=== PATIENT | female | born 1990 | race Caucasian/White ===

== ENCOUNTER 2017-03-28 10:32 | Outpatient (CLI) | payer MEDICAID ==
[~2017-03-28] VITALS: Ht 170.2 cm; Wt 77.1 kg
[2017-03-28] MEDS ORDERED: PREN1TAB13 PO (10:48)
[2017-03-28 10:49] VITALS: BP 109/65; PULSE 94; RESP 18; Ht 170.2 cm; Wt 77.1 kg
--- NOTE | 2017-03-28 11:59 | RADRPT ---
PROCEDURE: US OB limited CLINICAL INDICATION: Contractions TECHNIQUE: Multiple sonographic images of the pelvis were obtained. The images were reviewed on a PACS workstation. COMPARISON: None FINDINGS: There is a single live intrauterine , in cephalic presentation. A normal heart rate i s identified measuring 136 beats per minute. The amniotic fluid index is within normal limits measur ing 11.3 cm. The placenta is grade II, located anteriorly. IMPRESSION: 1. Single live intrauterine in cephalic presentation with normal heart rate of 136 b pm. 2. Normal amniotic fluid index of 11.3 cm. Physician Dasha Date Time Electronically viewed and signed by Physician Dasha on 03/28/2017 11:59 ALYCE/
[2017-03-28 13:29] LABS: ADD UMIC NO; UR ASCORBIC ACID NEGATIVE (NEGATIVE); UR BILIRUBIN (Dip) NEGATIVE (NEGATIVE); UR BLOOD (Dip) NEGATIVE (NEGATIVE); UR CLARITY CLEAR (CLEAR); UR COLOR YELLOW (YELLOW); UR GLUCOSE (Dip) NEGATIVE (NEGATIVE); UR KETONES (Dip) NEGATIVE (NEGATIVE); UR LEUKOCYTE ESTERASE (Dip) NEGATIVE Leu/ul (NEGATIVE); UR NITRITE (Dip) NEGATIVE (NEGATIVE); UR SPECIFIC GRAVITY (Dip) 1.019 (1.003-1.030); UR TOTAL PROTEIN (Dip) NEGATIVE (NEGATIVE); UR UROBILINOGEN (Dip) NEGATIVE (NEGATIVE)
--- NOTE | 2017-03-28 14:00 | RADRPT ---
PROCEDURE: OB ultrasound for biophysical profile CLINICAL INDICATION: Smoking. TECHNIQUE: Multiple sonographic images of the pelvis were obtained. Transabdominal view of the gr avid uterus are available for review. The images were reviewed on a PACS workstation. COMPARISON: OB ultrasound from earlier the same date. FINDINGS: breathing movement = 2/2 tone = 2/2 motion = 2/2 Quantitative amniotic fluid volume = 2/2 ROYAL = 12.9 cm Single live intrauterine with cardiac activity at 156 beats per minute. There is a anterior placenta without previa or abruption. IMPRESSION: 1. Single living intrauterine gestation in cephalic position. 2. Biophysical profile = 8/8. 3. ROYAL = 12.9 cm. RPTAT: [facility] Physician Chhaya Date Time Electronically viewed and signed by Physician Chhaya on 03/28/2017 14:00 /
--- NOTE | 2017-03-28 14:15 | TRIAGE ---
OB Triage Datetime Report Generated by CPN: 03/28/2017 14:14 Datetime: 03/28/2017 14:00 Stage of : OB Triage Maternal Assessment Level of Consciousness: Fully Conscious Labor Evaluation Frequency: IRREGULAR Monitor Mode: External Duration (sec)2399: 40-80 Quality: Mild Resting Tone [place]: Relaxed Heart Rate FHR Baseline Rate: 125 Monitor Mode: External US Variability: Moderate 6-25 bpm Accelerations: 15X15 Decelerations: None Pain Assessment Pain Scale: 6 Pain Presence: Intermittent Pain Type: Cramping Pain Location: Abdomen Pain Goal: 3 Pain Relief Measures: Comfort Measures Membrane Status: Intact Vaginal Bleeding: None Datetime: 03/28/2017 13:56 Monitor Mode: External Monitor Mode: External US Comments: BPP COMPLETE Datetime: 03/28/2017 13:50 Monitor Mode: External US Comments: US MOVED BY US TECH-RECORDING MATERNAL PULSE Datetime: 03/28/2017 13:00 Stage of : OB Triage Maternal Assessment Level of Consciousness: Fully Conscious Labor Evaluation Frequency: 1-4 Monitor Mode: External Duration (sec)2399: 40-80 Quality: Mild Resting Tone [place]: Relaxed Heart Rate FHR Baseline Rate: 125 Monitor Mode: External US Variability: Moderate 6-25 bpm Accelerations: 15X15 Decelerations: None Pain Assessment Pain Scale: 6 Pain Presence: Intermittent Pain Type: Cramping Pain Location: Abdomen Pain Goal: 3 Pain Relief Measures: Comfort Measures Membrane Status: Intact Vaginal Bleeding: None Datetime: 03/28/2017 11:49 Stage of : OB Triage Maternal Assessment Level of Consciousness: Fully Conscious Labor Evaluation Frequency: 2UC/HR Monitor Mode: External Duration (sec)2399: 80-120 Quality: Mild Resting Tone [place]: Relaxed Heart Rate FHR Baseline Rate: 135 Monitor Mode: External US Variability: Moderate 6-25 bpm Accelerations: 15X15 Decelerations: None Category: Category I Pain Assessment Pain Scale: 6 Pain Presence: Intermittent Pain Type: Cramping Pain Location: Abdomen Pain Goal: 3 Pain Relief Measures: Comfort Measures Membrane Status: Intact Vaginal Bleeding: None Datetime: 03/28/2017 11:20 Vaginal Exam Dilatation (cms): 0.0 Station: -3 Exam By: [email or web address] Vaginal Bleeding: None Cervix, Consistency: Firm Cervix, Position: Posterior Datetime: 03/28/2017 10:45 Assessment Type: Triage Maternal Assessment Level of Consciousness: Fully Conscious DTR's/Clonus: DTRs 2+; No Clonus Headache: Denies Blurred Vision: No Respiratory Effort: Unlabored; Regular Rhythm; Equal Expansion Breath Sounds, Left: Clear and Equal Breath Sounds, Right: Clear and Equal Nausea/Vomiting: Denies RUQ Epigastric Pain: Denies Lower Extremities Edema: None Degree: None Upper Extremities Edema: None Degree: None Facial Edema: None Fall Risk Assessment History of Falling: (0) No Secondary Diagnosis: (0) No Ambulatory Aid: (0) Bedrest/Nurse Assist IV Therapy: (0) No Gait: (0) Normal/Bedrest/Immobile Mental Status: (0) Oriented to Own Ability Fall Score: 0 Fall Risk Score Definition: No Risk: No action required Datetime: 03/28/2017 10:43 Time of Arrival: 03/28/2017 10:27 EGA: 36.2 Arrived By: Ambulatory Arrived From: [facility] Office Chief Complaint: PT SENT FROM OB OFFICE TO R/O LABOR Movement: Present Contractions: Irregular Rupture of Membranes: Denies Vaginal Bleeding: None Vaginal Discharge: Denies Recent Sexual Intercouse: Denies Abdominal Trauma: Not Applicable Patient Complaints: Contractions; Cramping; Back Pain Time Provider Notified: 03/28/2017 10:35 Provider Notified: SAMANTHA Initial Plan: EFM/SVE/BPP/UA Datetime: 03/28/2017 10:42 Monitor Mode: External Monitor Mode: External US
--- NOTE | 2017-03-28 14:24 | PN ---
Triage Information Date/Time 03/28/2017 Reason for visit: Uterine contractions Weeks of Gestation 36 weeks and 2 days /Para Diabetes: none Hypertention: none Additional information 27 years old with IUP at 36 weeks and 2 days presented with complaint of contractions. Denies any LOF, vaginal bleeding or decreased movement, Has limited OB care,. started her care at 31 weeks. Smoker every days, . smokes about 1pp/ week. interested to quit smoking,. Denies any other complaint Objective Vital Signs Date Time Temp Pulse Resp B/P Pulse Ox O2 Delivery O2 Flow Rate FiO2 03/28/17 10:49 98.1 94 18 109/65 98 Room Air Heart Rate: 130's Contractions: 6-10 Minutes Apart Exam GA: A&O, NAD Abdomen: Soft, non tender, Fundal Height consistent with GA NST: moderate variability, + AC and occasional variables SVE: Closed/ Long. High Repeat exam after observation in triage, did not show any change Results/Medications Results 24 hrs Laboratory Tests Test 03/28/17 11:00 Urine Color YELLOW Urine Clarity CLEAR Urine pH 6.0 Urine Specific [place] 1.019 Urine Ketones NEGATIVE Urine Nitrite NEGATIVE Urine Bilirubin NEGATIVE Urine Urobilinogen NEGATIVE Urine Leukocyte Esterase NEGATIVE Urine Hemoglobin NEGATIVE Urine Glucose NEGATIVE Urine Total Protein NEGATIVE Imaging Results PROCEDURE: OB ultrasound for biophysical profile CLINICAL INDICATION: Smoking. TECHNIQUE: Multiple sonographic images of the pelvis were obtained. Transabdominal view of the gravid uterus are available for review. The images were reviewed on a PACS workstation. COMPARISON: OB ultrasound from earlier the same date. FINDINGS: breathing movement = 2/2 tone = 2/2 motion = 2/2 Quantitative amniotic fluid volume = 2/2 ROYAL = 12.9 cm Single live intrauterine with cardiac activity at 156 beats per minute. There is a anterior placenta without previa or abruption. IMPRESSION: 1. Single living intrauterine gestation in cephalic position. 2. Biophysical profile = 8/8. 3. ROYAL = 12.9 cm. RPTAT: [facility] Disposition: Discharge Assessment/Plan IUP at 36 weeks and 2 days Pterterm contractions False labor pain Limited PNC Smoker, every day Discussed about risks of smoking in . Encouraged to Quit. interested, Nicotine Patch prescription provided PTL precaution and kick counts and follow up with her OB in the next 24- 48 hours discussed Patient verbalized understanding All questions answered. DOROTEO SINGH MD Mar 28, 2017 14:24
== END 2017-03-28 14:21 | disposition home or self-care (01) ==
LOC: OBT 10:32 → L-D 10:32 → OBT 14:21
PROVIDERS: ATTEND Obstetrics & Gynecology
DX: O62.9 Abnormality of forces of labor, unspecified (principal); Z3A.32 32 weeks gestation of pregnancy; O47.03 False labor before 37 completed weeks of gestation, third trimester
CPT/HCPCS: 76815; 76818; 81003; Z7500; G0463

== ENCOUNTER 2017-04-10 21:21 | Outpatient (CLI) | payer MEDICAID ==
[~2017-04-10] VITALS: Ht 170.2 cm; Wt 78.4 kg
[~2017-04-10 21:21] MED LIST: PREN1TAB13 PO
[2017-04-10 21:36] VITALS: BP 109/72; PULSE 81; RESP 18; Ht 170.2 cm; Wt 78.4 kg
[2017-04-11] MEDS ORDERED: LACTATED RINGER'S 1,000 ML IV PRN (00:30)
[2017-04-11] MEDS ORDERED: OXYTOCIN 30 UNITS/LR 500 ML IV SCH ×2 (00:30)
[2017-04-11] MEDS ORDERED: IBUPROFEN 600 MG TAB PO PRN (00:30)
[2017-04-11] MEDS ORDERED: OXYTOCIN 30 UNITS/LR 500 ML IV PRN (00:30)
[2017-04-11] MEDS ORDERED: BUTORPHANOL 2 MG INJ IV PRN (00:30)
[2017-04-11] MEDS ORDERED: MISOPROSTOL 200 MCG TAB PR PRN (00:30)
[2017-04-11] MEDS ORDERED: CARBOPROST 250 MCG INJ IM PRN (00:30)
[2017-04-11] MEDS ORDERED: LIDOCAINE 1% (MPF) 30 ML INJ INJ PRN (00:30)
[2017-04-11] MEDS ORDERED: METHYLERGONOVINE 0.2 MG INJ IM PRN (00:30)
[2017-04-11] MEDS ORDERED: AMPICILLIN 2 GM/NS (PMX) 100 ML IV ONE (01:00)
[2017-04-11] MEDS: LACTATED RINGER'S 1,000 ML IV SCH ×2 (02:00→10:20)
--- NOTE | 2017-04-11 02:14 | TRIAGE ---
OB Triage Datetime Report Generated by CPN: 04/11/2017 02:14 Datetime: 04/10/2017 23:00 Labor Evaluation Frequency: 2-6 Monitor Mode: External Duration (sec)2399: 80-100 Quality: Mild Pattern: Normal: <= 5 Contractions in 10 Minutes Resting Tone [place]: Relaxed Heart Rate FHR Baseline Rate: 135 Monitor Mode: External US FHR Baseline Changes: No Baseline Change Variability: Moderate 6-25 bpm Accelerations: 15X15 Decelerations: None Category: Category I Datetime: 04/10/2017 22:07 Stage of : OB Triage Vaginal Exam Dilatation (cms): 1.0 Effacement (%): 50 Station: -3 Exam By: Raghav RIGGS RN Membrane Status: Intact Vaginal Bleeding: Scant (Annotations: DARK BROWN BLOOD NOTED WITH VAG EXAM/ NO BLOOD NOTED ON ABBY NEUM) Cervix, Consistency: Firm Cervix, Position: Posterior Presentation 'A': Cephalic Datetime: 04/10/2017 22:00 Labor Evaluation Frequency: IRRITABILITY NOTED/ IRREGULAR CONTRACTIONS Monitor Mode: External Duration (sec)2399: 90 Quality: Mild Pattern: Normal: <= 5 Contractions in 10 Minutes Resting Tone [place]: Relaxed Heart Rate FHR Baseline Rate: 125 Monitor Mode: External US FHR Baseline Changes: No Baseline Change Variability: Moderate 6-25 bpm Accelerations: 15X15 Decelerations: None Category: Category I Datetime: 04/10/2017 21:33 Stage of : OB Triage Time of Arrival: 04/10/2017 21:16 EGA: 38.1 Arrived By: Ambulatory Chief Complaint: R/O LABOR Movement: Present Contractions: Irregular Time Contractions Began: 04/10/2017 21:00 Rupture of Membranes: Unsure Vaginal Bleeding: Scant Recent Sexual Intercouse: Denies Abdominal Trauma: Not Applicable Patient Complaints: None (Annotations: Data stored by CPN on behalf of user) Additional Patient Complaints: DARK BROWN BLOOD NOTED WITH VAG EXAM Time Provider Notified: 04/10/2017 23:06 Provider Notified: DR EDWARDS Initial Plan: CALL KEIKO SCHWARTZ Maternal Assessment Level of Consciousness: Fully Conscious DTR's/Clonus: DTRs 2+; No Clonus Headache: Denies Blurred Vision: No Respiratory Effort: Unlabored; Regular Rhythm; Equal Expansion Breath Sounds, Left: Clear and Equal Breath Sounds, Right: Clear and Equal Nausea/Vomiting: Denies RUQ Epigastric Pain: Denies Lower Extremities Edema: None Degree: None Upper Extremities Edema: None Facial Edema: None Temperature Route: Oral Fall Risk Assessment History of Falling: (0) No Secondary Diagnosis: (0) No Ambulatory Aid: (0) Bedrest/Nurse Assist IV Therapy: (0) No Gait: (0) Normal/Bedrest/Immobile Mental Status: (0) Oriented to Own Ability Fall Score: 0 Fall Risk Score Definition: No Risk: No action required Monitor Mode: External Monitor Mode: External US Pain Assessment Pain Scale: 7 Pain Presence: Intermittent Pain Type: Contraction Pain Location: Abdomen; Back Datetime: 03/28/2017 10:45 Fall Score: 0 Fall Risk Score Definition: No Risk: No action required Datetime: 03/28/2017 10:43 EGA: 36.2
[2017-04-11] MEDS ORDERED: AL HYDROX/MG HYDROX/SIMETH 30 ML CUP PO ONE (02:30)
[2017-04-11 02:51] LABS: BASOPHILS % 0.2 % (0.0-2.0); EOSINOPHILS # 0.1 10^3/ul (0.0-0.5); HEMATOCRIT 31.3 % (37.0-47.0); HEMOGLOBIN 11.4 g/dl (12.0-16.0); LYMPHOCYTES # 2.1 10^3/ul (0.8-2.9); LYMPHOCYTES % 21.8 % (15.0-51.0); MEAN CORPUSCULAR HEMOGLOBIN 31.7 pg (29.0-33.0); MEAN CORPUSCULAR HGB CONC 36.4 g/dl (32.0-37.0); MEAN CORPUSCULAR VOLUME 86.9 fl (82.0-101.0); MEAN PLATELET VOLUME 12.9 fl (7.4-10.4); MONOCYTE # 0.7 10^3/ul (0.3-0.9); MONOCYTES % 7.4 % (0.0-11.0); NEUTROPHIL # 6.7 10^3/ul (1.6-7.5); NEUTROPHILS % 68.9 % (39.0-77.0); PLATELET COUNT 195 10^3/UL (140-415); RED CELL DISTRIBUTION WIDTH 12.3 % (11.5-14.5); WHITE BLOOD COUNT 9.8 10^3/ul (4.8-10.8)
[2017-04-11 03:17] LABS: BARBITURATES Negative (NEGATIVE); BENZODIAZEPINES Negative (NEGATIVE); CANNABINOIDS Negative (NEGATIVE); COCAINE Negative (NEGATIVE); OPIATES Negative (NEGATIVE)
[2017-04-11 03:19] LABS: INR 0.88; PROTIME 11.9 Sec (12.2-14.2); PT RATIO 0.9
[2017-04-11 03:20] LABS: PARTIAL THROMBOPLASTIN TIME 25.8 Sec (25.0-35.0)
--- NOTE | 2017-04-11 05:37 | HP ---
Date/Time of Note Date/Time of Note DATE: 04/11/17 TIME: 05:27 OB - History Hx of Present Free Text/Dictation 27y.o A0 at 38w1d with vaginal spotting with low abdominal pressure pain since last night 2100 VE 1/50%/-3 EFM short variable intermittently with good tracing admit for delivery ,for at least extended observation poss augmentation. GBS unknown Chief Complaint: vaginal spotting with pelvic pain Estimated Due Date: Apr 23, 2017 : 3 Para: 2 Spontaneous : 0 Therapeutic : 0 Care: Other Ultrasounds: Other Obstetrical Complications: None Medical Complications: Musculoskeletal Past Family/Social History * Past Medical, Surgical, Family and Obstetric Histories reviewed from chart. Blood Type: A+ Rubella: immune RPR/VDRL: Negative GBS Status: Unknown HBsAG: Negative OB Admission Exam Vital Signs Vital Signs Vital Signs Date Time Temp Pulse Resp B/P Pulse Ox O2 Delivery O2 Flow Rate FiO2 04/10/17 21:36 98.3 81 18 109/72 Room Air Physical Exam HEENT: WNL Heart: Rhythm Normal Lungs: Clear, Equal Abdomen: WNL Extremities: Normal Reflexes: Normal Cervical Dilatation: 1cm Effacement: 50% Station: -1 Membranes: Intact Amniotic Fluid: Unevaluable Heart Rate: 140's Accelerations: Accelerations Present Decelerations: Variable Decelerations Varibility: Moderate Contractions on Admission: >10 Minutes Apart Intensity: Mild Last 72 hours Lab Results CBC & BMP 04/11/17 02:00 OB Assessment/Plan Reason for admission: other (variable deceleration) Other Assessment: [id number] Plan: Expectant Management Other plan: poss augmentation CAMILA EDWARDS MD Apr 11, 2017 05:36
[2017-04-11] MEDS: AMPICILLIN 1 GM/NS (PMX) 50 ML IV SCH ×2 (07:28→09:00)
--- NOTE | 2017-04-11 15:47 | RADRPT ---
PROCEDURE: US OB. CLINICAL INDICATION: Pain TECHNIQUE: Multiple sonographic images of the pelvis were obtained. The images were reviewed on a PACS workstation. COMPARISON: 03/28/2017 FINDINGS: There is a single live intrauterine . cardiac activity is identified at a rate of 12 0 beats per minute. presentation is cephalic. Placenta is anterior grade II. There is no evidence of placental abr uption. Biophysical profile score is as follows: Breathing 2 Movements 2 Tone 2 Fluid volume 2 Amniotic fluid index = 10.4 cm Total biophysical profile score = 8/8 IMPRESSION: Biophysical profile score = 8/8 RPTAT: HH .Jamil Menjivar MD, MD Date Time Electronically viewed and signed by .Jamil Menjivar MD, on 04/11/2017 15:47 .W/
== END 2017-04-11 17:00 | disposition home or self-care (01) ==
LOC: OBT 21:21 → L-D 21:23 → OBT 04-11 00:01 → L-D 04-11 00:01 → UNDOADMIN 04-11 00:01 → L-D 04-11 00:52 → OBT 04-11 17:00
PROVIDERS: ATTEND Obstetrics & Gynecology
DX: O26.853 Spotting complicating pregnancy, third trimester (principal); Z3A.38 38 weeks gestation of pregnancy
CPT/HCPCS: 76818; 80307; 85025; 85610; 85730; 86592; 86900; 86901; 87340; 96360; 96361; J0290; J7120; Z7500; Z7610; G0463